=== PATIENT | female | born 1960 | race American Indian/Alaskan Native ===

== ENCOUNTER 2017-12-07 14:23 | Emergency (ER) | payer OTHER ==
[2017-12-07] MEDS ORDERED: ULTRAM PO ONE (19:48)
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
[2017-12-08 00:25] VITALS: BP 124/72
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
== END 2017-12-08 00:26 | disposition home or self-care (01) ==
LOC: ED 14:23
DX: S27.321A Contusion of lung, unilateral, initial encounter (principal); Z87.891 Personal history of nicotine dependence; Z90.710 Acquired absence of both cervix and uterus; V49.59XA Passenger injured in collision with other motor vehicles in traffic accident, initial encounter; W22.12XA Striking against or struck by front passenger side automobile airbag, initial encounter; Y93.89 Activity, other specified; Y99.8 Other external cause status; Y92.488 Other paved roadways as the place of occurrence of the external cause
CPT/HCPCS: 36415; 71046; 71275; 82565; 93005; 93010; 99284; Q9967